=== PATIENT | female | born 1955 | race Caucasian/White ===

== ENCOUNTER 2018-05-28 10:18 | Emergency (ER) | payer SELFPAY ==
--- NOTE | 2018-05-28 11:07 | RAD REPORT ---
EXAM DESCRIPTION: RAD - Shoulder Left 2 View - 05/28/2018 11:00 am CLINICAL HISTORY: PAIN COMPARISON: No comparisons FINDINGS: Mild AC joint degenerative changes are seen. No fracture, dislocation or aggressive marrow lesion.
[2018-05-28] MEDS ORDERED: METHYLPREDNISOLONE 125 MG INJ ONE (11:43)
[2018-05-28] MEDS ORDERED: HYDROCODONE/APAP 7.5/325 MG TAB ONE (11:44)
--- NOTE | 2018-05-28 11:50 | ER ---
Nurse's Notes [facility] Name: Patricia Mosher Age: 62 yrs Sex: Female : 1955 Arrival Date: 05/28/2018 Time: 10:19 Bed 24 Private MD: None, None Diagnosis: Pain in left shoulder Presentation: 05/28 10:23 Presenting complaint: Patient states: left shoulder pain for one month, significantly la1 worse the last 3 days, pain with ROM, no known injuries. Transition of care: patient was not received from another setting of care. Onset of symptoms was May 28, 2018. Risk Assessment: Do you want to hurt yourself or someone else? Patient reports no desire to harm self or others. Initial Sepsis Screen: Does the patient meet any 2 criteria? No. Patient's initial sepsis screen is negative. Does the patient have a suspected source of infection? No. Patient's initial sepsis screen is negative. Care prior to arrival: None. 10:23 Method Of Arrival: Ambulatory la1 10:23 Acuity: JOSE 4 la1 Historical: - Allergies: 10:24 No Known Allergies; la1 - PMHx: 10:24 None; la1 - PSHx: 10:24 Hysterectomy; la1 - Immunization history:: Adult Immunizations up to date. - Social history:: Smoking status: Patient/guardian denies using tobacco. - Ebola Screening: : No symptoms or risks identified at this time. Screenin:27 Abuse screen: Denies threats or abuse. Nutritional screening: No deficits noted. la1 Tuberculosis screening: No symptoms or risk factors identified. Fall Risk None identified. Assessment: 10:26 General: Appears uncomfortable, Behavior is calm, cooperative. Pain: Complains of pain la1 in anterior aspect of left shoulder and posterior aspect of left shoulder Pain radiates to neck Pain currently is 8 out of 10 on a pain scale. Quality of pain is described as sharp, Aggravated by ROM. Cardiovascular: Denies chest pain, lightheadedness, palpitations, shortness of breath, syncope, vomiting. Respiratory: Airway is patent Respiratory effort is even, unlabored, Respiratory pattern is regular, symmetrical. GI: No signs and/or symptoms were reported involving the gastrointestinal system. : No signs and/or symptoms were reported regarding the genitourinary system. Musculoskeletal: Circulation, motion, and sensation intact. Capillary refill < 3 seconds, Range of motion: limited in left shoulder. Vital Signs: 10:24 BP 146 / 88; Pulse 84; Resp 16; Temp 98.7; Pulse Ox 98% on R/A; Weight 79.38 kg; Height la1 5 ft. 9 in. (175.26 cm); 10:24 Body Mass Index 25.84 (79.38 kg, 175.26 cm) la1 ED Course: 10:19 Patient arrived in ED. mr 10:19 None, None is Private Physician. mr 10:23 Triage completed. la1 10:24 Arm band placed on left wrist. la1 10:26 Armando Ovalle, RN is Primary Nurse. la1 10:26 [facility]ita Ashton F[facility]-C [facility]. kb 10:26 Maurice Hodges MD is Attending Physician. kb 10:27 Call light in reach. la1 10:59 X-ray completed. Portable x-ray completed in exam room. Patient tolerated procedure sg4 well. 11:00 Shoulder Left (2 View) XRAY In Process Unspecified. EDMS 11:44 No provider procedures requiring assistance completed. Patient did not have IV access ss during this emergency room visit. Sling applied to left arm. Administered Medications: 11:39 Drug: SOLU-Medrol 125 mg Route: IM; Site: right gluteus; ss 11:58 Follow up: Response: No adverse reaction ss 11:42 Drug: [place] (7.5 mg-325 mg) 1 tabs Route: PO; ss 11:58 Follow up: Response: No adverse reaction; Pain is decreased ss Outcome: 11:12 Discharge ordered by MD. kb 11:58 Discharged to home ambulatory, with family. ss 11:58 Condition: good 11:58 Discharge instructions given to patient, family, Instructed on discharge instructions, follow up and referral plans. medication usage, Demonstrated understanding of instructions, follow-up care, medications, Prescriptions given X 2. 11:58 Patient left the ED. ss Signatures: Dispatcher [employer] EDMS Anita Ashton FNP-C FNP-Ckb Kaiden Kristina mr GodoyAllie vences, ELLYN RAGLAND Armando Ovalle RN RN la1 Nazanin Harding sg4
--- NOTE | 2018-05-28 11:50 | EDPHYS ---
Physician Documentation [facility] Name: Patricia Mosher Age: 62 yrs Sex: Female : 1955 Arrival Date: 05/28/2018 Time: 10:19 Bed 24 Private MD: None, None ED Physician Maurice Hodges HPI: 05/28 10:38 This 62 yrs old Female presents to ER via Ambulatory with complaints of kb Shoulder Pain. 10:38 The patient or guardian complains of decreased range of motion, pain, that is acute, kb tenderness. left shoulder. Context: The problem was sustained at an unknown site, resulted from an unknown reason, The patient experiences decreased range of motion, when attempts to raise arm, The patient reports no obvious deformity. Onset: The symptoms/episode began/occurred 1 month(s) ago. Modifying factors: the symptoms are alleviated by nothing. The symptoms are aggravated by movement. Associated signs and symptoms: Pertinent positives: severe pain. Severity of symptoms: At their worst the symptoms were moderate, severe, in the emergency department the symptoms are unchanged. Treatment prior to arrival includes: icing the affected extremity. The patient has not experienced similar symptoms in the past. The patient has not recently seen a physician. Pt reports left shoulder pain that radiates to neck and fingers at times. Pain began one month ago and has been getting worse. HAs been taking antiinflammatories and icing extremity, but that isn't helping much anymore. Denies injury or trauma. Historical: - Allergies: 10:24 No Known Allergies; la1 - PMHx: 10:24 None; la1 - PSHx: 10:24 Hysterectomy; la1 - Immunization history:: Adult Immunizations up to date. - Social history:: Smoking status: Patient/guardian denies using tobacco. - Ebola Screening: : No symptoms or risks identified at this time. ROS: 10:37 Constitutional: Negative for fever, chills, and weight loss, Neck: Negative for injury, kb pain, and swelling, Cardiovascular: Negative for chest pain, palpitations, and edema, Respiratory: Negative for shortness of breath, cough, wheezing, and pleuritic chest pain, Abdomen/GI: Negative for abdominal pain, nausea, vomiting, diarrhea, and constipation, Skin: Negative for injury, rash, and discoloration, Neuro: Negative for headache, weakness, numbness, tingling, and seizure. 10:37 MS/extremity: Positive for decreased range of motion, pain, tenderness, of the left shoulder. Exam: 10:36 Constitutional: This is a well developed, well nourished patient who is awake, alert, kb and in no acute distress. Head/Face: Normocephalic, atraumatic. Chest/axilla: Normal chest wall appearance and motion. Nontender with no deformity. No lesions are appreciated. Cardiovascular: Regular rate and rhythm with a normal S1 and S2. No gallops, murmurs, or rubs. Normal PMI, no JVD. No pulse deficits. Respiratory: Lungs have equal breath sounds bilaterally, clear to auscultation and percussion. No rales, rhonchi or wheezes noted. No increased work of breathing, no retractions or nasal flaring. Abdomen/GI: Soft, non-tender, with normal bowel sounds. No distension or tympany. No guarding or rebound. No evidence of tenderness throughout. Skin: Warm, dry with normal turgor. Normal color with no rashes, no lesions, and no evidence of cellulitis. Neuro: Awake and alert, GCS 15, oriented to person, place, time, and situation. Cranial nerves II-XII grossly intact. Motor strength 5/5 in all extremities. Sensory grossly intact. Cerebellar exam normal. Normal gait. 10:36 Musculoskeletal/extremity: Extremities: grossly normal except: noted in the left shoulder: decreased ROM, pain, tenderness, ROM: limited active range of motion due to pain, Circulation is intact in all extremities. Sensation intact. Vital Signs: 10:24 BP 146 / 88; Pulse 84; Resp 16; Temp 98.7; Pulse Ox 98% on R/A; Weight 79.38 kg; Height la1 5 ft. 9 in. (175.26 cm); 10:24 Body Mass Index 25.84 (79.38 kg, 175.26 cm) la1 MDM: 10:26 Patient medically screened. kb 10:36 Data reviewed: vital signs, nurses notes. Data interpreted: Pulse oximetry: on room air kb is 98 %. Interpretation: normal. 11:11 Counseling: I had a detailed discussion with the patient and/or guardian regarding: the kb historical points, exam findings, and any diagnostic results supporting the discharge/admit diagnosis, radiology results, the need for outpatient follow up, a orthopedic surgeon, to return to the emergency department if symptoms worsen or persist or if there are any questions or concerns that arise at home. 05/28 10:32 Order name: Shoulder Left (2 View) XRAY; Complete Time: 11:11 kb 05/28 11:15 Order name: Sling; Complete Time: 11:28 kb Administered Medications: 11:39 Drug: SOLU-Medrol 125 mg Route: IM; Site: right gluteus; ss 11:58 Follow up: Response: No adverse reaction ss 11:42 Drug: [place] (7.5 mg-325 mg) 1 tabs Route: PO; ss 11:58 Follow up: Response: No adverse reaction; Pain is decreased ss Disposition: 05/29 11:11 Co-signature as Attending Physician, Maurice Hodges MD. Disposition: 05/28/18 11:12 Discharged to Home. Impression: Pain in left shoulder. - Condition is Stable. - Discharge Instructions: Shoulder Pain, [id number], Radicular Pain. - Prescriptions for Cyclobenzaprine 10 mg Oral Tablet - take 1 tablet by ORAL route every 8 hours As needed; 21 tablet. Tramadol 50 mg Oral Tablet - take 1 tablet by ORAL route every 8 hours as needed; 12 tablet. - Medication Reconciliation Form, Thank You Letter, Antibiotic Education, Prescription Opioid Use form. - Follow up: Emergency Department; When: As needed; Reason: Worsening of condition. Follow up: Private Physician; When: 2 - 3 days; Reason: Recheck today's complaints, Continuance of care, Re-evaluation by your physician. Signatures: Dispatcher [employer] Anita Prasad, DAVID PICKETT-Allie Cano RN RN ss Armando Ovalle RN RN la1 Maurice Hodges MD MD Corrections: (The following items were deleted from the chart) 05/28 11:58 11:12 05/28/2018 11:12 Discharged to Home. Impression: Pain in left shoulder. Condition ss is Stable. Forms are Medication Reconciliation Form, Thank You Letter, Antibiotic Education, Prescription Opioid Use. Follow up: Emergency Department; When: As needed; Reason: Worsening of condition. Follow up: Private Physician; When: 2 - 3 days; Reason: Recheck today's complaints, Continuance of care, Re-evaluation by your physician. kb
== END 2018-05-28 11:58 | disposition home or self-care (01) ==
LOC: ER 10:18
DX: M25.512 Pain in left shoulder (principal)
CPT/HCPCS: 96372; 99284; J2930